=== PATIENT | female | born 1940 | race Caucasian/White ===

== ENCOUNTER 2018-02-27 02:45 | Observation (INO) | payer BC ==
[~2018-02-27] VITALS: Ht 154.9 cm; Wt 50.3 kg
[2018-02-27 02:54] VITALS: Ht 154.9 cm; Wt 50.3 kg
[2018-02-27 03:27] LABS: BASOPHIL % 0.2 % (0-2); PLATELET COUNT 297 x10^3mcL (130-400); RED CELL DISTRIBUTION WIDTH 12.8 % (11.5-14.5)
[2018-02-27 03:54] LABS: ALBUMIN 4.2 g/dL (3.4-5.0); ALKALINE PHOSPHATASE 77 U/L (46-116); ALT/SGPT 17 U/L (14-59); AMYLASE 25 U/L (25-115); AST/SGOT 29 U/L (15-37); BILIRUBIN TOTAL 0.6 mg/dL (0.20-1.00); CALCIUM 8.9 mg/dL (8.5-10.1); CARBON DIOXIDE 24.7 mmol/L (21-32); CHLORIDE SERUM 101 mmol/L (98-107); CREATININE SERUM 0.8 mg/dL (0.6-1.0); GLUCOSE SERUM 219 mg/dL (74-106); LIPASE 33 IU/L (73-393); POTASSIUM SERUM 3.2 mmol/L (3.5-5.1); SODIUM SERUM 139 mmol/L (136-145); TOTAL PROTEIN, SERUM 7.6 g/dL (6.4-8.2)
[2018-02-27] MEDS ORDERED: ALBUTEROL0.63 MG/3 (04:52)
[2018-02-27] MEDS ORDERED: ATIVAN0.5 M1 PO (04:54)
[2018-02-27] MEDS ORDERED: COM25S PR (04:54)
[2018-02-27] MEDS ORDERED: [UNRECOGNIZED DRUG - CODE] (04:55)
[2018-02-27 06:36] LABS: FREE T4 1.44 ng/dL (0.76-1.46); FREE THYROXINE INDEX 3.9 ug/dL (1.4-4.5); T3 TOTAL 1.04 ng/mL; T4(THYROXINE) 11.2 ug/dL (4.7-13.3)
[2018-02-27 06:39] VITALS: BP 163/82
[2018-02-27 07:13] LABS: UA SPECIFIC GRAVITY 1.015 (1.005-1.035); microscopic required? YES; urine erythrocyte 1+ (NEGATIVE)
[2018-02-27 07:13] LABS: CHOLESTEROL/HDL RATIO 3.4; PHOSPHOROUS 2.6 mg/dL (2.5-4.9)
[2018-02-27 09:03] VITALS: BP 162/94
[2018-02-27 10:22] VITALS: BP 162/94
[2018-02-27 13:16] VITALS: BP 149/74
[2018-02-27 14:57] VITALS: BP 149/74
[2018-02-27 16:52] VITALS: BP 120/66
[2018-02-27] MEDS ORDERED: ONDANSETRON4 M3 PO (17:23)
== END 2018-02-27 19:59 | DRG 436 ==
LOC: ED 02:45 → DU 05:27
PROVIDERS: Emergency Medicine; Family Medicine
DX: C78.7 Secondary malignant neoplasm of liver and intrahepatic bile duct (principal); C18.7 Malignant neoplasm of sigmoid colon; Z68.1 Body mass index [BMI] 19.9 or less, adult; F03.90 Unspecified dementia, unspecified severity, without behavioral disturbance, psychotic disturbance, mood disturbance, and anxiety; E87.6 Hypokalemia; Z93.3 Colostomy status; Z66 Do not resuscitate
CPT/HCPCS: 83880; 84439; C9113; G0378; J0780; J2405; J3480; J3490; J7030; Q0092